=== PATIENT | male | born 1960 | race Caucasian/White ===

== ENCOUNTER → 2018-11-05 11:05 | Day surgery (SDC) | payer OTHER, MEDICAID ==
[~2018-11-05 11:05] MED LIST: Buffered Lidocaine 1% SYRIN* 1 ML/SYRINGE INTRADERM ONE; Bupivacaine 0.25% EPI 200,000* 30 ML SDV ONE; Dexamethasone IV* 4 MG/ML 1 ML (4 MG) IV SLOW PU ONE; Dexamethasone IV* 4 MG/ML 1 ML (4 MG) ONE; DiMENhydriNATE IV* 50 MG/ML VIAL IV PUSH PRN; Famotidine IV* 10 MG/ML 2 ML (20 mg) IV ONE; Famotidine IV* 10 MG/ML 2 ML (20 mg) ONE; Ketorolac INJ* 30 MG/ML 1 ML VIAL ONE; Lactated Ringers 1000 ML Bag* 1,000 ML IV SCH; Lidocaine 2% PF * 5 ML VIAL ONE; Midazolam* 1 MG/ML 5 ML VIAL (5 MG) ONE; Naloxone* 0.4 MG/ML 1 ML VIAL IV PRN; Ondansetron INJ* 2 MG/ML VIAL IV PRN; Ondansetron INJ* 2 MG/ML VIAL ONE; Propofol* 10 MG/ML 20 ML BTL ONE; Rocuronium* 10 MG/ML VIAL ONE; Scopolamine 1.5 mg* PATCH TRANSDERM PRN; Sugammadex * 200 MG/2 ML VIAL IV PUSH ONE; Sugammadex * 500 MG/5 ML VIAL IV PUSH ONE; ceFAZolin 2 GM PREMIX in ORs 2 GM/50 ML BAG IVPB ONE; fentaNYL* 50 MCG/ML 2 ML VIAL (100 MCG VIAL) IV PRN; fentaNYL* 50 MCG/ML 5 ML VIAL (250 MCG VIAL) ONE; oxyCODONE/Acetamin 5/325 MG* TAB PO PRN
--- NOTE | 2018-11-05 14:17 | OP ---
Operative Report - Blank - Operative Report Date of Operation: 11/05/18 Note: Brief Operative Note Preop Dx: Left Inguinal hernia Postop Dx: same (indirect) Procedure: laparoscopic repair LIH w/ mesh Anesthesia: GET Surgeon: Tyrone Clerical Warehouseman: BRANNON De Leon Fluids: 1000 ml RL EBL: < 50 ml Specimen: none Drains: none Findings: dictated
[2018-11-05 15:23] VITALS: BP 144/94
--- NOTE | 2018-11-05 21:24 | OP ---
CC: Primary care doctor; [facility]. OPERATIVE REPORT: DATE OF OPERATION: 11/05/18 DATE OF : 58 SURGEON: Sharan Hansen MD. JEWELRY APPRAISER: VALERIO Walton. ANESTHESIOLOGIST: Dr. Johnson. ANESTHESIA: General. PRE-OP DIAGNOSIS: Left inguinal hernia. POST-OP DIAGNOSIS: Left inguinal hernia. OPERATIVE PROCEDURE: Laparoscopic left inguinal hernia repair with mesh. ESTIMATED BLOOD LOSS: Minimal. FLUIDS: Crystalloid fluid 1 L given. SPECIMEN: None. DESCRIPTION OF PROCEDURE: The patient was identified in the preoperative area. He was marked, conse nt was signed. He was brought to the operating room, placed on the operating table in supine positio n. Preoperative antibiotics were given. Sequential devices were placed on bilateral lower extremitie s. General anesthesia was induced. The patient's abdomen was clipped of hair and prepped and draped in standard surgical fashion. A time-out was performed. An infraumbilical incision was made. This was deepened down to the anterior fascia on the right, whi ch was then incised and the rectus pillar retracted laterally. We then entered into the preperitonea l plane and blunt dissection was carried out. This did lead to some bleeding that was controlled afte r placing the Ethel and balloon cannula in. We then placed the camera through this and did blunt di ssection to open up the preperitoneal plane well. Two additional 5-mm trocars were then placed in th e lower midline. We turned our attention to Alonso's ligament, both left and right that was cleared off. There was no evidence of a direct inguinal hernia. We then maintained epigastric vessels anteriorly and opened u p the space of Bogros. The hernia sac was then identified. We did violate the peritoneum quite prox imal to the hernia sac and we first dissected some of the sac out of the inguinal canal and then clip ped the peritoneum together to close this. Additional blunt dissection was carried out to free the entire hernia sac. This was quite large, was freed up from the spermatic structures well without any bleeding. Next, a medium-sized left Bard 3DMax mesh was then placed into the preperitoneal plane, allowed to un furl, tagged to Alonso ligament and also laterally to cover the myopectineal orifice. We did place a n Endo Close at the hernia sac and tagged this to the portion of the mesh that we could visualize to prevent this from entering into the canal. We then looked around. Hemostasis was excellent. We did put a gauze in and then removed it to see if there was no additional bleeding. We then allowed the preperitoneal plane to collapse. Trocars removed under direct vision. We then next opened up the pos terior fascia and peritoneum at the umbilical port site to allow the air to escape and closed in 2 la yers and then the skin with a 4-0 Monocryl subcuticular sutures followed by sterile dressing. The valerio knox tolerated the procedure well. [id number]/[facility] #: [id number]
== END | disposition home or self-care (01) ==
LOC: OR 11:05
PROVIDERS: ATTEND Surgery
DX: K40.90 Unilateral inguinal hernia, without obstruction or gangrene, not specified as recurrent (principal)
CPT/HCPCS: C1781; J0690; J1100; J1885; J2250; J2405; J2704; J3010